=== PATIENT | male | born 1945 | race Caucasian/White ===

== ENCOUNTER → 2018-07-21 | Outpatient (CLI) | payer MEDICARE ==
[2018-07-21 11:03] LABS: LDL Cholesterol,Calculated 96.6 mg/dL (0.0-131.0); VLDL Calculation 18.4 mg/dL (5.00-40.00)
== END | disposition home or self-care (01) ==
LOC: LABWHC1 07:11
PROVIDERS: ATTEND Internal Medicine Cardiovascular Disease
DX: E78.2 Mixed hyperlipidemia (principal)
CPT/HCPCS: 36415; 80061; 84450; 84460

== ENCOUNTER 2018-10-02 08:14 | Emergency (ER) | payer MEDICARE ==
[2018-10-02 08:19] VITALS: TEMP 97.6
[2018-10-02] MEDS ORDERED: IPRATROPIUM-ALBUTEROL 3 ML NEB INHALATION STA (08:36)
[2018-10-02] MEDS ORDERED: predniSONE 50 MG TAB PO STA (08:36)
--- NOTE | 2018-10-02 08:45 | ED ---
General Adult HPI - General Chief complaint: Shortness of Breath Stated complaint: Diff breathing Time Seen by Provider: 10/02/18 08:14 Source: patient, RN notes reviewed Mode of arrival: ambulatory Limitations: no limitations - History of Present Illness Initial comments: This is a 73-year-old male who states he is here because he is coughing and coughing up quite a bit of sputum. Patient states she is a smoker and has been smoking since she was young. Patient states this started about a week ago started his head and nose and is now moved down into his chest. Patient states he is short of breath but he has no chest pain no palpitations. Patient denies any abdominal pain patient denies any nausea vomiting diarrhea. Patient states he is coughing so much is made it difficult to sleep lately. Patient denies any lightheadedness dizziness or near syncopal episode. - Related Data Home Medications Medication Instructions Recorded Confirmed Aspirin [[place] Aspirin EC] 81 mg PO DAILY 10/02/18 10/02/18 Carvedilol [Coreg] 25 mg PO DAILY 10/02/18 10/02/18 Lisinopril-Hctz 20-12.5 mg 1 tab PO DAILY 10/02/18 10/02/18 [Zestoretic 20-12.5] Multivitamins, Thera [Multivitamin 1 tab PO DAILY 10/02/18 10/02/18 (formulary)] Spironolactone [Aldactone] 25 mg PO DAILY 10/02/18 10/02/18 guaiFENesin-DM 600/30MG [Mucinex 1 tab PO BID 10/02/18 10/02/18 Dm] Previous Rx's Medication Instructions Recorded Albuterol Inhaler [Ventolin Hfa 1 - 2 puff INHALATION Q6HR PRN #2 10/02/18 Inhaler] puff Azithromycin [Zithromax Tri-Rob] 500 mg PO DAILY #3 tab 10/02/18 predniSONE 40 mg PO DAILY #8 tab 10/02/18 Allergies Allergy/AdvReac Type Severity Reaction Status Date / Time Penicillins Allergy Unknown Verified 10/02/18 08:55 Review of Systems ROS Statement: Those systems with pertinent positive or pertinent negative responses have been documented in the HPI. ROS Other: All systems not noted in ROS Statement are negative. Past Medical History Past Medical History: Coronary Artery Disease (CAD), Hyperlipidemia, Hypertension, Myocardial Infarction ([place]) History of Any Multi-Drug Resistant Organisms: None Reported Past Psychological History: No Psychological Hx Reported Smoking Status: Current every day smoker Past Alcohol Use History: None Reported Past Drug Use History: None Reported General Exam - General Exam Comments Initial Comments: GENERAL: Patient is well-developed and well-nourished. Patient is nontoxic and well- hydrated and is in mild distress. ENT: Neck is soft and supple. No significant lymphadenopathy is noted. Oropharynx is clear. Moist mucous membranes. Neck has full range of motion without eliciting any pain. EYES: The sclera were anicteric and conjunctiva were pink and moist. Extraocular movements were intact and pupils were equal round and reactive to light. Eyelids were unremarkable. PULMONARY: Extra wheezing diffusely CARDIOVASCULAR: There is a regular rate and rhythm without any murmurs gallops or rubs. ABDOMEN: Soft and nontender with normal bowel sounds. No palpable organomegaly was noted. There is no palpable pulsatile mass. SKIN: Skin is clear with no lesions or rashes and otherwise unremarkable. NEUROLOGIC: Patient is alert and oriented x3. Cranial nerves II through XII are grossly intact. Motor and sensory are also intact. Normal speech, volume and content. Symmetrical smile. MUSCULOSKELETAL: Normal extremities with adequate strength and full range of motion. No lower extremity swelling or edema. No calf tenderness. LYMPHATICS: No significant lymphadenopathy is noted PSYCHIATRIC: Normal psychiatric evaluation. Limitations: no limitations Course Vital Signs 10/02/18 10/02/18 10/02/18 08:16 08:56 09:06 Temperature 97.6 F Pulse Rate 83 84 88 Respiratory 20 Rate Blood Pressure 151/76 O2 Sat by Pulse 98 Oximetry Medical Decision Making - Medical Decision Making EKG shows normal sinus rhythm at 69 bpm AR interval is 182 QRS is 96 Q-T intervals 46 QTC is 435 per patient's EKG shows no ST segment elevation or depression or T wave abnormalities are noted. Chest x-ray shows calcifications of probable asbestosis. Patient received Rocephin emergency department. Patient received a breathing treatment and steroids in the emergency department as well. After the treatment I listened to the patient's lungs he was much more clear only some scattered wheezing was still hurt. Patient states he feels considerably better. Disposition Clinical Impression: Bronchitis with bronchospasm Disposition: HOME SELF-CARE Condition: Good Prescriptions: Albuterol Inhaler [Ventolin Hfa Inhaler] 1 - 2 puff INHALATION Q6HR PRN #2 puff PRN Reason: Difficulty breathing Azithromycin [Zithromax Tri-Rob] 500 mg PO DAILY #3 tab predniSONE 40 mg PO DAILY #8 tab Is patient prescribed a controlled substance at d/c from ED?: No Referrals: None,Stated [Primary Care Provider] - 1-2 days Time of Disposition: 09:24
--- NOTE | 2018-10-02 08:59 | XR ---
EXAMINATION TYPE: XR chest 2V DATE OF EXAM: 10/02/2018 HISTORY: Difficulty breathing . REFERENCE: NONE. FINDINGS: Lung volumes are prominent. There is calcified pleural plaque present. The heart is not enl arged. There is no definite pneumonia or edema. IMPRESSION: 1. COPD. 2. CALCIFIED PLEURAL PLAQUE REFLECTING PREVIOUS ASBESTOS EXPOSURE.
[2018-10-02] MEDS ORDERED: cefTRIAXone 1,000 MG VIAL (IM USE) IM STA (09:16)
[2018-10-02 10:03] VITALS: BP 138/72; PULSE 80; RESP 18
== END 2018-10-02 10:05 | disposition home or self-care (01) ==
LOC: EC 08:14
DX: J40 Bronchitis, not specified as acute or chronic (principal); J98.01 Acute bronchospasm; I25.10 Atherosclerotic heart disease of native coronary artery without angina pectoris; I10 Essential (primary) hypertension; I25.2 Old myocardial infarction; F17.200 Nicotine dependence, unspecified, uncomplicated; Z79.02 Long term (current) use of antithrombotics/antiplatelets; Z79.82 Long term (current) use of aspirin; Z79.899 Other long term (current) drug therapy; Z88.0 Allergy status to penicillin
CPT/HCPCS: 94640; 71046; 99285; 96372; J0696; J7512

== ENCOUNTER → 2019-08-23 | Outpatient (CLI) | payer MEDICARE ==
[2019-08-23 14:53] LABS: African American GFR (CKD) >90 (>60 ml/min/1.73 sqM); Blood Urea Nitrogen 11 mg/dL (9-20); Non-African American GFR(CKD) >90 (>60 ml/min/1.73 sqM)
--- NOTE | 2019-08-23 15:37 | CT ---
EXAMINATION TYPE: CT angio abdomen DATE OF EXAM: 08/23/2019 COMPARISON: HISTORY: ABNORMAL ULTRASOUND CT DLP: 365 mGycm CONTRAST: CTA thoracic and abdominal aorta with 3-D reconstruction is performed and with IV Contrast, patient i njected with 100 mL of Isovue 370. Contrast CTA of the abdominal aorta was performed from the lung bases through the base of the pelvis. 3-D reconstruction imaging obtained at a separate workstation. CONTRAST CT ABDOMEN AND PELVIS Lung bases: Calcified pleural plaques are noted. ABDOMINAL AORTA: The abdominal aorta is ectatic however nonaneurysmal at this time. Maximal AP dimens ion of the abdominal aorta is 2.9 cm. No dissection. Iliac vessels are symmetric and patent. Branc h vessels are patent. LIVER/GB- No significant abnormality is seen. PANCREAS- No significant abnormality is seen. SPLEEN- No significant abnormality is seen. ADRENALS- No significant abnormality is seen. KIDNEYS/BLADDER-large left renal cyst with 2 adjacent cysts noted measuring 6.2 cm and 6.8 cm in grea test dimension. Smaller right-sided renal cortical cysts noted. BOWEL- No Significant abnormality GENITAL ORGANS: No gross abnormality seen. LYMPH NODES- No greater than 1cm abdominal or pelvic lymph nodes areappreciated. OSSEOUS STRUCTURES- No significant abnormality is seen. OTHER- No significant abnormality is seen. IMPRESSION- 1. Atheromatous and ectatic change of the abdominal aorta without evidence for aneurysm. 2. 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 3. Large renal cysts particularly on the left.
== END | disposition home or self-care (01) ==
LOC: RADCTMAIN 11:44
PROVIDERS: ATTEND Internal Medicine Cardiovascular Disease
DX: I70.0 Atherosclerosis of aorta (principal); I77.811 Abdominal aortic ectasia; N28.1 Cyst of kidney, acquired; Z88.0 Allergy status to penicillin; Z88.8 Allergy status to other drugs, medicaments and biological substances
CPT/HCPCS: 82565; 84520; 74175; Q9967

== ENCOUNTER → 2019-09-05 | Outpatient (CLI) | payer MEDICARE ==
--- NOTE | 2019-09-05 16:31 | CT ---
EXAMINATION TYPE: CT chest wo con DATE OF EXAM: 09/05/2019 COMPARISON: Chest x-ray October 02, 2018 HISTORY: cough, asbestos exposure, cardiomyopathy, history of tobacco use, coronary artery disease PADILLA RDER. CT DLP: 472.7 mGycm. Automated Exposure Control for Dose Reduction was Utilized. TECHNIQUE: CT scan of the thorax is performed without IV contrast. FINDINGS: LUNGS: Calcified bilateral pleural plaques consistent with history of prior asbestos exposure fairly diffusely are redemonstrated. Involvement just above both diaphragms is noted. Lungs show mild scarri ng along the right major fissure axial image 30 and near region of right minor fissure axial image 36 and also along the left long fissure axial image 38 laterally. No suspicious focal consolidation. No pleural effusion or pneumothorax. No suspicious noncalcified pulmonary nodules or masses. Mild centr al peribronchial wall thickening is present. MEDIASTINUM: Lack of IV contrast is noted to limit evaluation for mediastinal and especially hilar ad enopathy. There are no definitive greater than 1 cm hilar or mediastinal lymph nodes. No significan t pericardial effusion is seen. There is severe diffuse three-vessel coronary artery calcification wh ich is noted marker for underlying coronary artery disease. Heart size upper limits of normal. OTHER: Small degree of bilateral subareolar flame-shaped gynecomastia. There are 2 fairly large exoph ytic adjacent thin-walled cysts bilaterally upper to mid pole level left kidney partially imaged. Mod erate calcified plaque visualized portion of abdominal aorta. IMPRESSION: Multiple calcified pleural plaques consistent with history of prior asbestos exposure. Mi ld scarring along fissures. No suspicious acute pulmonary process.
== END | disposition home or self-care (01) ==
LOC: RADCTMAIN 15:45
PROVIDERS: ATTEND Internal Medicine Pulmonary Disease
DX: J98.4 Other disorders of lung (principal); I25.10 Atherosclerotic heart disease of native coronary artery without angina pectoris; I42.9 Cardiomyopathy, unspecified; Z72.0 Tobacco use; J92.0 Pleural plaque with presence of asbestos
CPT/HCPCS: 71250

== ENCOUNTER 2019-12-05 15:54 | Emergency (ER) | payer MEDICARE ==
[2019-12-05 15:59] VITALS: BP 172/80; PULSE 66; RESP 18; TEMP 98.3
--- NOTE | 2019-12-05 16:14 | ED ---
Lower Extremity Injury HPI - General Chief Complaint: Extremity Injury, Lower Stated Complaint: Leg pain Time Seen by Provider: 12/05/19 16:00 Source: patient Mode of arrival: ambulatory Limitations: no limitations - History of Present Illness Initial Comments: Patient is a 74-year-old male presenting to emergency Department with complaints of pain in his left calf that happened approximately 20 minutes prior to arrival. Patient states he normally walks outside but attempted to jog today when he felt a pull in his left calf muscle. Patient states he is having a hard time walking so he came in to the ER. He states he's been having problems with this calf muscle for a few years now. He's never had surgery or any other further injuries to this left lower leg. She denies any falls or trauma. He denies history of blood clots. He has no other complaints at this time. Upon arrival to the ER, vital signs are stable. - Related Data Home Medications Medication Instructions Recorded Confirmed Aspirin [[place] Aspirin EC] 81 mg PO DAILY 10/02/18 10/02/18 Carvedilol [Coreg] 25 mg PO DAILY 10/02/18 10/02/18 Lisinopril-Hctz 20-12.5 mg 1 tab PO DAILY 10/02/18 10/02/18 [Zestoretic 20-12.5] Multivitamins, Thera [Multivitamin 1 tab PO DAILY 10/02/18 10/02/18 (formulary)] Spironolactone [Aldactone] 25 mg PO DAILY 10/02/18 10/02/18 guaiFENesin-DM 600/30MG [Mucinex 1 tab PO BID 10/02/18 10/02/18 Dm] Previous Rx's Medication Instructions Recorded Albuterol Inhaler [Ventolin Hfa 1 - 2 puff INHALATION Q6HR PRN #2 10/02/18 Inhaler] puff Azithromycin [Zithromax Tri-Rob] 500 mg PO DAILY #3 tab 10/02/18 predniSONE [Deltasone] 40 mg PO DAILY #8 tab 10/02/18 Allergies Allergy/AdvReac Type Severity Reaction Status Date / Time Penicillins Allergy Unknown Verified 12/05/19 15:59 Review of Systems ROS Statement: Those systems with pertinent positive or pertinent negative responses have been documented in the HPI. ROS Other: All systems not noted in ROS Statement are negative. Past Medical History Past Medical History: Coronary Artery Disease (CAD), Hyperlipidemia, Hypertension, Myocardial Infarction ([place]) History of Any Multi-Drug Resistant Organisms: None Reported Past Psychological History: No Psychological Hx Reported Smoking Status: Former smoker Past Alcohol Use History: None Reported Past Drug Use History: None Reported General Exam - General Exam Comments Initial Comments: GENERAL: Well-appearing, well-nourished and in no acute distress. HEAD: Atraumatic, normocephalic. EYES: Pupils equal round and reactive to light, extraocular movements intact, sclera anicteric, conjunctiva are normal. ENT: Moist mucous membranes. NECK: Normal range of motion, supple without lymphadenopathy or JVD. LUNGS: Breath sounds clear to auscultation bilaterally and equal. No wheezes rales or rhonchi. HEART: Regular rate and rhythm without murmurs, rubs or gallops. ABDOMEN: Soft, nontender, normoactive bowel sounds. No guarding, no rebound. No masses appreciated. EXTREMITIES: Patient has full range of motion of his left lower leg. Pain with palpation over the left gastroc muscle. There is no erythema or swelling to the area. No pitting or edema. No clubbing or cyanosis. NEUROLOGICAL: Normal speech, normal gait. PSYCH: Normal mood, normal affect. SKIN: Warm, Dry, normal turgor, no rashes or lesions noted. Limitations: no limitations Course Vital Signs 12/05/19 15:55 Temperature 98.3 F Pulse Rate 66 Respiratory 18 Rate Blood Pressure 172/80 O2 Sat by Pulse 100 Oximetry Medical Decision Making - Medical Decision Making Patient is a 74-year-old male presenting with a muscle strain of his left calf happened just prior to arrival. There is no signs of infection. I discussed with patient to use ice to the area as well as heat, Tylenol or Motrin for pain relief as well as a compression wrap for symptoms. Patient will follow up with PCP if symptoms persist. Patient is stable for discharge. Disposition Clinical Impression: Gastrocnemius strain, left Disposition: HOME SELF-CARE Condition: Stable Instructions (If sedation given, give patient instructions): Muscle Strain (ED) Additional Instructions: Please return to the Emergency Department if symptoms worsen or any other concerns. Use ice to the area for the first 24-48 hours. After that may apply heat to the area. Use compression wrap for comfort. May try Tylenol for pain. Follow up with PCP if symptoms persist. Is patient prescribed a controlled substance at d/c from ED?: No Referrals: None,Stated [Primary Care Provider] - 1-2 days
== END 2019-12-05 16:21 | disposition home or self-care (01) ==
LOC: EC 15:54
DX: S86.112A Strain of other muscle(s) and tendon(s) of posterior muscle group at lower leg level, left leg, initial encounter (principal); I25.10 Atherosclerotic heart disease of native coronary artery without angina pectoris; I10 Essential (primary) hypertension; I25.2 Old myocardial infarction; Z87.891 Personal history of nicotine dependence; Z88.0 Allergy status to penicillin; Z79.82 Long term (current) use of aspirin; Z79.899 Other long term (current) drug therapy; X50.9XXA Other and unspecified overexertion or strenuous movements or postures, initial encounter; Y93.89 Activity, other specified
CPT/HCPCS: 99283

== ENCOUNTER → 2020-07-17 | Outpatient (CLI) | payer MEDICARE ==
[2020-07-17 15:34] LABS: Chol/HDL Ratio 4.31; LDL Cholesterol,Calculated 102.4 mg/dL (0.0-131.0); VLDL Calculation 26.6 mg/dL (5.00-40.00)
== END | disposition home or self-care (01) ==
LOC: LABWHC1 08:19
PROVIDERS: ATTEND Internal Medicine Cardiovascular Disease
DX: E78.2 Mixed hyperlipidemia (principal)
CPT/HCPCS: 36415; 80061; 84450; 84460

== ENCOUNTER → 2021-07-17 | Outpatient (CLI) | payer MEDICARE ==
[2021-07-17 12:14] LABS: Chol/HDL Ratio 3.81 Ratio; HDL Cholesterol 32.3 mg/dL (40.00-60.00); LDL Cholesterol,Calculated 67.3 mg/dL (0.0-131.0); VLDL Calculation 23.4 mg/dL (5.00-40.00)
== END | disposition home or self-care (01) ==
LOC: LABWHC1 07:15
PROVIDERS: ATTEND Nurse Practitioner Family
DX: E78.2 Mixed hyperlipidemia (principal)
CPT/HCPCS: 36415; 80061; 84450; 84460

== ENCOUNTER → 2022-07-29 | Outpatient (CLI) | payer MEDICARE ==
[2022-07-29 15:13] LABS: HCT 47.1 % (39.6-50.0); HGB 15.2 g/dL (13.0-17.0); MCH 28.5 pg (27.0-32.0); MCHC 32.3 g/dL (32.0-37.0); MCV 88.2 fL (80.0-97.0); Mean Platelet Volume 10.8 fL (9.5-12.2); NRBC Per 100 WBC 0 /100 WBCS (0.0-0.0); Platelet Count 333 X 10*3/uL (140-440); RBC 5.34 X 10*6/uL (4.40-5.60); RDW 13.4 % (11.5-14.5); WBC 10.54 X 10*3/uL (4.50-10.00)
[2022-07-29 15:30] LABS: ALT 10 U/L (10-49); AST 18 U/L (14-35); African American GFR (CKD) 98.7 (60.0-200.0); BUN/Creat Ratio 11.89 Ratio (12.00-20.00); Blood Urea Nitrogen 10.3 mg/dL (9.0-27.0); Calcium 9.5 mg/dL (8.7-10.3); Carbon Dioxide 30.9 mmol/L (20.0-27.5); Chloride 95 mmol/L (96-109); Chol/HDL Ratio 3.53 Ratio; Glucose 117 mg/dL (70-110); LDL Cholesterol,Calculated 73.2 mg/dL (0.0-131.0); Non-African American GFR(CKD) 85.2 (60.0-200.0); Potassium 5.3 mmol/L (3.5-5.5); Sodium 134 mmol/L (135-145)
== END | disposition home or self-care (01) ==
LOC: LABWHC1 08:30
PROVIDERS: ATTEND Internal Medicine Cardiovascular Disease
DX: I25.10 Atherosclerotic heart disease of native coronary artery without angina pectoris (principal); E78.2 Mixed hyperlipidemia
CPT/HCPCS: 36415; 80048; 80061; 84450; 84460; 85027

== ENCOUNTER → 2023-07-15 | Outpatient (CLI) | payer MEDICARE ==
[2023-07-15 16:38] LABS: ALT 13 U/L (10-49); AST 17 U/L (14-35); Chol/HDL Ratio 2.97 Ratio; LDL Cholesterol,Calculated 64.6 mg/dL (0.0-131.0); VLDL Calculation 17.58 mg/dL (5.00-40.00)
== END | disposition home or self-care (01) ==
LOC: LABWHC1 07:58
PROVIDERS: ATTEND Internal Medicine Cardiovascular Disease
DX: E78.2 Mixed hyperlipidemia (principal)
CPT/HCPCS: 36415; 80061; 84450; 84460

== ENCOUNTER → 2024-07-24 | Outpatient (CLI) | payer MEDICARE ==
[2024-07-24 11:37] LABS: ALT 15 U/L (10-49); AST 19 U/L (14-35); LDL Cholesterol,Calculated 78.2 mg/dL (0.0-131.0); VLDL Calculation 19.88 mg/dL (5.00-40.00)
== END | disposition home or self-care (01) ==
LOC: LABWHC1 07:41
PROVIDERS: ATTEND Internal Medicine Cardiovascular Disease
DX: E78.2 Mixed hyperlipidemia (principal)
CPT/HCPCS: 36415; 80061; 84450; 84460

== ENCOUNTER 2024-09-30 22:47 | Emergency (ER) | payer MEDICARE ==
[2024-09-30] MEDS: MIDAZOLAM 1 MG/ML 5 ML VIAL IVP STA (22:52)
[2024-09-30 22:57] LABS: Glucose,Whole Blood 229 mg/dL (70-110)
--- NOTE | 2024-09-30 22:58 | ED ---
Altered Mental Status HPI - General Chief Complaint: Altered Mental Status Stated Complaint: Unresponsive Time Seen by Provider: 09/30/24 22:57 Source: patient, EMS, RN notes reviewed, old records reviewed Mode of arrival: EMS Limitations: no limitations - History of Present Illness Initial Comments: This is a 79-year-old male of unknown medical history coming in for being found down. Patient was found during a well check to be unresponsive vomiting with a low oxygen level MD Complaint: altered mental status, decreased responsiveness, weakness -: unknown Severity: severe Consistency of Symptoms: constant Associated Symptoms: nausea/vomiting, weakness, incontinence Treatments Prior to Arrival: IV fluid, oxygen - Related Data Home Medications Medication Instructions Recorded Confirmed Aspirin [[place] Aspirin EC] 81 mg PO DAILY 10/02/18 10/02/18 Lisinopril-Hctz 20-12.5 mg 1 tab PO DAILY 10/02/18 10/02/18 [Zestoretic 20-12.5] Multivitamins, Thera [Multivitamin 1 tab PO DAILY 10/02/18 10/02/18 (formulary)] Spironolactone [Aldactone] 25 mg PO DAILY 10/02/18 10/02/18 carvediloL [Coreg] 25 mg PO DAILY 10/02/18 10/02/18 guaiFENesin-DM 600/30MG [Mucinex 1 tab PO BID 10/02/18 10/02/18 Dm] Previous Rx's Medication Instructions Recorded Albuterol Inhaler [Ventolin Hfa 1 - 2 puff INHALATION Q6HR PRN #2 10/02/18 Inhaler] puff Azithromycin [Zithromax Tri-Rob] 500 mg PO DAILY #3 tab 10/02/18 predniSONE [Deltasone] 40 mg PO DAILY #8 tab 10/02/18 Allergies Allergy/AdvReac Type Severity Reaction Status Date / Time Penicillins Allergy Unknown Verified 12/05/19 15:59 Review of Systems ROS Statement: Those systems with pertinent positive or pertinent negative responses have been documented in the HPI. ROS Other: All systems not noted in ROS Statement are negative. Past Medical History Past Medical History: Coronary Artery Disease (CAD), Hyperlipidemia, Hypertension, Myocardial Infarction (NM) History of Any Multi-Drug Resistant Organisms: None Reported Past Psychological History: No Psychological Hx Reported Past Alcohol Use History: None Reported Past Drug Use History: None Reported General Exam Limitations: altered mental status, physical limitation General appearance: anxious, obtunded, in distress Head exam: Present: atraumatic, normocephalic, normal inspection Eye exam: Present: normal appearance, PERRL, EOMI. Absent: scleral icterus, conjunctival injection, periorbital swelling ENT exam: Present: normal exam, mucous membranes moist Neck exam: Present: normal inspection. Absent: tenderness, meningismus, lymphadenopathy Respiratory exam: Present: normal lung sounds bilaterally. Absent: respiratory distress, wheezes, rales, rhonchi, stridor Cardiovascular Exam: Present: regular rate, normal rhythm, normal heart sounds. Absent: systolic murmur, diastolic murmur, rubs, gallop, clicks GI/Abdominal exam: Present: soft, normal bowel sounds. Absent: distended, tenderness, guarding, rebound, rigid Extremities exam: Present: normal inspection, full ROM, normal capillary refill. Absent: tenderness, pedal edema, joint swelling, calf tenderness Back exam: Present: normal inspection Neurological exam: Present: alert, oriented X3, CN II-XII intact Psychiatric exam: Present: normal affect, normal mood Skin exam: Present: warm, dry, intact, normal color. Absent: rash Course Vital Signs 09/30/24 09/30/24 09/30/24 22:49 23:06 23:08 Pulse Rate 96 Respiratory 4 L 4 L Rate Blood Pressure 177/95 O2 Sat by Pulse 85 L Oximetry Fraction of 100 Inspired Oxygen (FIO2) 09/30/24 09/30/24 09/30/24 23:09 23:20 23:35 Pulse Rate 92 80 Respiratory 22 22 Rate Blood Pressure 120/64 137/43 O2 Sat by Pulse 100 97 Oximetry Fraction of 100 Inspired Oxygen (FIO2) 09/30/24 09/30/24 10/01/24 23:40 23:50 00:00 Pulse Rate 77 105 H Respiratory 22 22 Rate Blood Pressure 113/61 123/57 O2 Sat by Pulse 99 95 Oximetry Fraction of 60 Inspired Oxygen (FIO2) 10/01/24 10/01/24 10/01/24 00:27 01:11 01:50 Pulse Rate 68 67 64 Respiratory 22 18 22 Rate Blood Pressure 77/51 106/54 96/61 O2 Sat by Pulse 97 98 100 Oximetry Fraction of Inspired Oxygen (FIO2) - Reevaluation(s) Reevaluation #1: 01/11/25 23:54 Medical records reviewed Reevaluation #2: 10/01/24 01:03 Appear to be showing spontaneous neurologically movement biting on the tube Reevaluation #3: 10/01/24 01:03 No family or patient at bedside to inform of results, family was spoke with on the phone he states patient is full code Reevaluation #4: Was pt. sent in by a medical professional or institution (, [facility], [facility], urgent care, hospital, or usp...) When possible be specific @ -no Did you speak to anyone other than the patient for history (EMS, parent, family, police, friend...)? What history was obtained from this source @ -no Did you review nursing and triage notes (agree or disagree)? Why? @ -agree Are old charts reviewed (outside hosp., previous admission, EMS record, old EKG, old radiological studies, urgent care reports/EKG's, usp records)? Report findings @ -yes Differential Diagnosis (chest pain, altered mental status, abdominal pain women, abdominal pain men, vaginal bleeding, weakness, fever, dyspnea, syncope, headache, dizziness, GI bleed, back pain, seizure, CVA, palpatations, mental health, musculoskeletal)? @ -prior EKG interpreted by me (3pts min.). @ -yes X-rays interpreted by me (1pt min.). @ -yes negative for acute disease CT interpreted by me (1pt min.). @ -Yes positive for intracranial hemorrhage U/S interpreted by me (1pt. min.). @ -no What testing was considered but not performed or refused? (CT, X-rays, U/S, labs)? Why? @ -none What meds were considered but not given or refused? Why? @ -none Did you discuss the management of the patient with other professionals (professionals i.e. [facility] Mcneal, [employer] [employer], lab, RT, psych nurse, social media strategist, tube roller, teacher, loans officer, rn case manager)? Give summary @ -no Was smoking cessation discussed for >3mins.? @ -no Was critical care preformed (if so, how long)? @ -yes31 Were there social determinants of health that impacted care today? How? (Homelessness, low income, unemployed, alcoholism, drug addiction, transportation, low edu. Level, literacy, decrease access to med. care, fdc, rehab)? @ -none Was there de-escalation of care discussed even if they declined (Discuss DNR or withdrawal of care, Hospice)? DNR status @ -no What co-morbidities impacted this encounter? (DM, HTN, Smoking, COPD, CAD, Cancer, CVA, ARF, Chemo, Hep., AIDS, mental health diagnosis, sleep apnea, morbid obesity)? @ -none Was patient admitted / discharged? Hospital course, mention meds given and route, prescriptions, significant lab abnormalities, going to OR and other pertinent info. @ - 79 male unresponsive altered mental status positive intracranial hemorrhage will transfer for inpatient treatment, patient does appear to have conversion of prior CVA Transferred for inpatient treatment Undiagnosed new problem with uncertain prognosis? @ -no Drug Therapy requiring intensive monitoring for toxicity (Heparin, Nitro, Insulin, Cardizem)? @ -no Were any procedures done? @ -no Diagnosis/symptom? @ -Intracranial hemorrhage Acute, or Chronic, or Acute on Chronic? @ -Acute Uncomplicated (without systemic symptoms) or Complicated (systemic symptoms)? @ -Complicated Side effects of treatment? @ -no Exacerbation, Progression, or Severe Exacerbation? @ -exacerbation Poses a threat to life or bodily function? How? (Chest pain, USA, NM, pneumonia, PE, COPD, DKA, ARF, appy, cholecystitis, CVA, Diverticulitis, Homicidal, Suicidal, threat to staff... and all critical care pts) @ -yes significant acute intracranial hemorrhage Reevaluation #5: Differential Altered Mental Status: Hypoglycemia, DKA, hypercapnia, ETOH, overdose, CO poisoning, trauma, myxedema coma, HTN encephalopathy, infection, encephalitis, psychosis, intercranial hemorrhage, hepatic encephalopathy, meningitis, CVA, this is not meant to be an all-inclusive list - Consultations Consultation #1: [facility] [place] accept patient for transfer Procedures - Intubation Sedative: Ketamine Laryngoscope: Joni Size: 4 Assist Device Used: Bougie ET Tube Size: 7.5 ET Tube Uncuffed: Yes Tube Secured Location: teeth Tube Placement Confirmation: visualized tube passing through cords, equal breath sounds bilaterally, no breath sounds over epigastrium, confirmation by capnometry Patient Tolerated Procedure: well Intubation Complications: none Medical Decision Making - Medical Decision Making 79 male unresponsive altered mental status positive intracranial hemorrhage will transfer for inpatient treatment, patient does appear to have conversion of prior CVA - Lab Data Result diagrams: 09/30/24 22:51 09/30/24 22:51 Lab Results 09/30/24 09/30/24 09/30/24 Range/Units 22:51 22:51 22:51 WBC 25.2 H (3.8-10.6) k/uL RBC 4.90 (4.30-5.90) m/uL Hgb 14.6 (13.0-17.5) gm/dL Hct 44.3 (39.0-53.0) % MCV 90.6 (80.0-100.0) fL MCH 29.8 (25.0-35.0) pg MCHC 32.9 (31.0-37.0) g/dL RDW 13.0 (11.5-15.5) % Plt Count 287 (150-450) k/uL MPV 7.8 Neutrophils % 90 % Lymphocytes % 3 % Monocytes % 5 % Eosinophils % 1 % Basophils % 0 % Neutrophils # 22.8 H (1.3-7.7) k/uL Lymphocytes # 0.8 L (1.0-4.8) k/uL Monocytes # 1.3 H (0-1.0) k/uL Eosinophils # 0.1 (0-0.7) k/uL Basophils # 0.0 (0-0.2) k/uL PT 10.8 (10.0-12.5) sec INR 1.0 (<1.2) APTT 23.1 (22.0-30.0) sec Sample Site ABG pH (7.35-7.45) ABG pCO2 (35-45) mmHg ABG pO2 (83-108) mmHg ABG HCO3 (21-25) mmol/L ABG Total CO2 (19-24) mmol/L ABG O2 Saturation (94-97) % ABG Base Excess mmol/L John Test Hemoglobin (13.0-17.5) gm/dL FiO2 % Sodium 126 L (137-145) mmol/L Potassium 4.3 (3.5-5.1) mmol/L Chloride 88 L (98-107) mmol/L Carbon Dioxide 29 (22-30) mmol/L Anion Gap 9 mmol/L BUN 14 (9-20) mg/dL Creatinine 0.67 (0.66-1.25) mg/dL Est GFR (CKD-EPI)AfAm >90 (>60 ml/min/1.73 sqM) Est GFR (CKD-EPI)NonAf >90 (>60 ml/min/1.73 sqM) Glucose 222 H (74-99) mg/dL POC Glucose (mg/dL) (70-110) mg/dL POC Glu [employer] Checker ID Calcium 9.0 (8.4-10.2) mg/dL Total Bilirubin 0.7 (0.2-1.3) mg/dL AST 50 (17-59) U/L ALT 20 (4-49) U/L Alkaline Phosphatase 113 (38-126) U/L Ammonia (<30) umol/L Creatine Kinase 573 H (55-170) U/L Troponin I (0.000-0.034) ng/mL Total Protein 6.5 (6.3-8.2) g/dL Albumin 4.0 (3.5-5.0) g/dL Urine Color Urine Appearance (Clear) Urine pH (5.0-8.0) Ur Specific [place] (1.001-1.035) Urine Protein (Negative) Urine Glucose (UA) (Negative) Urine Ketones (Negative) Urine Blood (Negative) Urine Nitrite (Negative) Urine Bilirubin (Negative) Urine Urobilinogen (<2.0) mg/dL Ur Leukocyte Esterase (Negative) Urine RBC (0-5) /hpf Urine WBC (0-5) /hpf Amorphous Sediment (None) /hpf Urine Bacteria (None) /hpf Hyaline Casts (0-2) /lpf Urine Mucus (None) /hpf Salicylates <1.0 mg/dL Urine Opiates Screen (NotDetected) Ur Oxycodone Screen (NotDetected) Urine Methadone Screen (NotDetected) Acetaminophen <10.0 ug/mL Ur Barbiturates Screen (NotDetected) U Tricyclic Antidepress (NotDetected) Ur Phencyclidine Scrn (NotDetected) Ur Amphetamines Screen (NotDetected) U Methamphetamines Scrn (NotDetected) U Benzodiazepines Scrn (NotDetected) Urine Cocaine Screen (NotDetected) U Marijuana (THC) Screen (NotDetected) Serum Alcohol <10 mg/dL Acetone, Qual Negative (Negative) 09/30/24 09/30/24 09/30/24 Range/Units 22:51 22:51 22:55 WBC (3.8-10.6) k/uL RBC (4.30-5.90) m/uL Hgb (13.0-17.5) gm/dL Hct (39.0-53.0) % MCV (80.0-100.0) fL MCH (25.0-35.0) pg MCHC (31.0-37.0) g/dL RDW (11.5-15.5) % Plt Count (150-450) k/uL MPV Neutrophils % % Lymphocytes % % Monocytes % % Eosinophils % % Basophils % % Neutrophils # (1.3-7.7) k/uL Lymphocytes # (1.0-4.8) k/uL Monocytes # (0-1.0) k/uL Eosinophils # (0-0.7) k/uL Basophils # (0-0.2) k/uL PT (10.0-12.5) sec INR (<1.2) APTT (22.0-30.0) sec Sample Site ABG pH (7.35-7.45) ABG pCO2 (35-45) mmHg ABG pO2 (83-108) mmHg ABG HCO3 (21-25) mmol/L ABG Total CO2 (19-24) mmol/L ABG O2 Saturation (94-97) % ABG Base Excess mmol/L John Test Hemoglobin (13.0-17.5) gm/dL FiO2 % Sodium (137-145) mmol/L Potassium (3.5-5.1) mmol/L Chloride (98-107) mmol/L Carbon Dioxide (22-30) mmol/L Anion Gap mmol/L BUN (9-20) mg/dL Creatinine (0.66-1.25) mg/dL Est GFR (CKD-EPI)AfAm (>60 ml/min/1.73 sqM) Est GFR (CKD-EPI)NonAf (>60 ml/min/1.73 sqM) Glucose (74-99) mg/dL POC Glucose (mg/dL) 229 H (70-110) mg/dL POC Glu [employer] Checker ID [facility] Calcium (8.4-10.2) mg/dL Total Bilirubin (0.2-1.3) mg/dL AST (17-59) U/L ALT (4-49) U/L Alkaline Phosphatase (38-126) U/L Ammonia 15 (<30) umol/L Creatine Kinase (55-170) U/L Troponin I 0.307 H* (0.000-0.034) ng/mL Total Protein (6.3-8.2) g/dL Albumin (3.5-5.0) g/dL Urine Color Urine Appearance (Clear) Urine pH (5.0-8.0) Ur Specific [place] (1.001-1.035) Urine Protein (Negative) Urine Glucose (UA) (Negative) Urine Ketones (Negative) Urine Blood (Negative) Urine Nitrite (Negative) Urine Bilirubin (Negative) Urine Urobilinogen (<2.0) mg/dL Ur Leukocyte Esterase (Negative) Urine RBC (0-5) /hpf Urine WBC (0-5) /hpf Amorphous Sediment (None) /hpf Urine Bacteria (None) /hpf Hyaline Casts (0-2) /lpf Urine Mucus (None) /hpf Salicylates mg/dL Urine Opiates Screen (NotDetected) Ur Oxycodone Screen (NotDetected) Urine Methadone Screen (NotDetected) Acetaminophen ug/mL Ur Barbiturates Screen (NotDetected) U Tricyclic Antidepress (NotDetected) Ur Phencyclidine Scrn (NotDetected) Ur Amphetamines Screen (NotDetected) U Methamphetamines Scrn (NotDetected) U Benzodiazepines Scrn (NotDetected) Urine Cocaine Screen (NotDetected) U Marijuana (THC) Screen (NotDetected) Serum Alcohol mg/dL Acetone, Qual (Negative) 09/30/24 09/30/24 Range/Units 23:27 23:27 WBC (3.8-10.6) k/uL RBC (4.30-5.90) m/uL Hgb (13.0-17.5) gm/dL Hct (39.0-53.0) % MCV (80.0-100.0) fL MCH (25.0-35.0) pg MCHC (31.0-37.0) g/dL RDW (11.5-15.5) % Plt Count (150-450) k/uL MPV Neutrophils % % Lymphocytes % % Monocytes % % Eosinophils % % Basophils % % Neutrophils # (1.3-7.7) k/uL Lymphocytes # (1.0-4.8) k/uL Monocytes # (0-1.0) k/uL Eosinophils # (0-0.7) k/uL Basophils # (0-0.2) k/uL PT (10.0-12.5) sec INR (<1.2) APTT (22.0-30.0) sec Sample Site Left Radial ABG pH 7.30 L (7.35-7.45) ABG pCO2 58 H (35-45) mmHg ABG pO2 149 H (83-108) mmHg ABG HCO3 28 H (21-25) mmol/L ABG Total CO2 30 H (19-24) mmol/L ABG O2 Saturation 99.2 H (94-97) % ABG Base Excess 0.7 mmol/L John Test Yes Hemoglobin 13.5 (13.0-17.5) gm/dL FiO2 100 % Sodium (137-145) mmol/L Potassium (3.5-5.1) mmol/L Chloride (98-107) mmol/L Carbon Dioxide (22-30) mmol/L Anion Gap mmol/L BUN (9-20) mg/dL Creatinine (0.66-1.25) mg/dL Est GFR (CKD-EPI)AfAm (>60 ml/min/1.73 sqM) Est GFR (CKD-EPI)NonAf (>60 ml/min/1.73 sqM) Glucose (74-99) mg/dL POC Glucose (mg/dL) (70-110) mg/dL POC Glu [employer] Checker ID Calcium (8.4-10.2) mg/dL Total Bilirubin (0.2-1.3) mg/dL AST (17-59) U/L ALT (4-49) U/L Alkaline Phosphatase (38-126) U/L Ammonia (<30) umol/L Creatine Kinase (55-170) U/L Troponin I (0.000-0.034) ng/mL Total Protein (6.3-8.2) g/dL Albumin (3.5-5.0) g/dL Urine Color Yellow Urine Appearance Clear (Clear) Urine pH 6.0 (5.0-8.0) Ur Specific [place] 1.020 (1.001-1.035) Urine Protein 3+ H (Negative) Urine Glucose (UA) 4+ H (Negative) Urine Ketones 1+ H (Negative) Urine Blood Large H (Negative) Urine Nitrite Negative (Negative) Urine Bilirubin Negative (Negative) Urine Urobilinogen <2.0 (<2.0) mg/dL Ur Leukocyte Esterase Negative (Negative) Urine RBC 7 H (0-5) /hpf Urine WBC 5 (0-5) /hpf Amorphous Sediment Rare H (None) /hpf Urine Bacteria Rare H (None) /hpf Hyaline Casts 23 H (0-2) /lpf Urine Mucus Few H (None) /hpf Salicylates mg/dL Urine Opiates Screen Not Detected (NotDetected) Ur Oxycodone Screen Not Detected (NotDetected) Urine Methadone Screen Not Detected (NotDetected) Acetaminophen ug/mL Ur Barbiturates Screen Not Detected (NotDetected) U Tricyclic Antidepress Not Detected (NotDetected) Ur Phencyclidine Scrn Not Detected (NotDetected) Ur Amphetamines Screen Not Detected (NotDetected) U Methamphetamines Scrn Not Detected (NotDetected) U Benzodiazepines Scrn Not Detected (NotDetected) Urine Cocaine Screen Not Detected (NotDetected) U Marijuana (THC) Screen Not Detected (NotDetected) Serum Alcohol mg/dL Acetone, Qual (Negative) - EKG Data -: EKG Interpreted by Me (EKG is sinus 92 [place] 209 QRS 146 QTc 440) - Radiology Data Radiology results: report reviewed (CT Brain C-spine positive for large intracranial hemorrhage with chest and pelvis x-ray negative for acute disease), image reviewed Critical Care Time Critical Care Time: Yes Total Critical Care Time: 65 Disposition Clinical Impression: Altered mental status, Acute respiratory failure, Intracranial hemorrhage Disposition: OTHER INSTITUTION NOT DEFINED Condition: Critical Is patient prescribed a controlled substance at d/c from ED?: No Referrals: None,Stated [Primary Care Provider] - 1-2 days - Out of Hospital Transfer - Req. Specs Out of Hospital Transfer - Requested Specifics: Other Emergency Center ([facility]
[2024-09-30] MEDS: NALOXONE 0.4 MG/ML 1 ML VIAL IVP STA (23:06)
[2024-09-30] MEDS: SODIUM CHLORIDE 0.9% 1,000 ML IV ONE (23:07)
[2024-09-30] MEDS: SODIUM CHLORIDE 0.9% 1,000 ML IV STA (23:08)
[2024-09-30 23:24] LABS: Basophils % (A) 0 %; Eosinophils # (A) 0.1 k/uL (0-0.7); Eosinophils % (A) 1 %; HCT 44.3 % (39.0-53.0); HGB 14.6 gm/dL (13.0-17.5); Lymphocytes # (A) 0.8 k/uL (1.0-4.8); Lymphocytes % (A) 3 %; MCH 29.8 pg (25.0-35.0); MCHC 32.9 g/dL (31.0-37.0); MCV 90.6 fL (80.0-100.0); Mean Platelet Volume 7.8; Monocytes # (A) 1.3 k/uL (0-1.0); Monocytes % (A) 5 %; Neutrophils # (A) 22.8 k/uL (1.3-7.7); Neutrophils % (A) 90 %; Platelet Count 287 k/uL (150-450); WBC 25.2 k/uL (3.8-10.6)
[2024-09-30 23:30] LABS: ABG Base Excess 0.7 mmol/L; ABG HCO3 28 mmol/L (21-25); ABG Oxygen Saturation 99.2 % (94-97); ABG PCO2 58 mmHg (35-45); ABG PO2 149 mmHg (83-108); ABG TCO2 30 mmol/L (19-24); Allen Test Performed? Yes
[2024-09-30 23:33] LABS: Partial Thromboplastin Time 23.1 sec (22.0-30.0); Prothrombin Time 10.8 sec (10.0-12.5)
[2024-09-30 23:41] LABS: ALT 20 U/L (4-49); AST 50 U/L (17-59); Acetaminophen <10.0 ug/mL; African American GFR (CKD) >90 (>60 ml/min/1.73 sqM); Alcohol <10 mg/dL; Alkaline Phosphatase 113 U/L (38-126); Anion Gap 9 mmol/L; Blood Urea Nitrogen 14 mg/dL (9-20); Carbon Dioxide 29 mmol/L (22-30); Chloride 88 mmol/L (98-107); Creatine Kinase 573 U/L (55-170); Glucose 222 mg/dL (74-99); Non-African American GFR(CKD) >90 (>60 ml/min/1.73 sqM); Potassium 4.3 mmol/L (3.5-5.1); Salicylate <1.0 mg/dL; Sodium 126 mmol/L (137-145); Total Bilirubin 0.7 mg/dL (0.2-1.3); Total Protein 6.5 g/dL (6.3-8.2)
[2024-10-01 00:07] LABS: Amorphous Sediment,Urine Rare /hpf; Appearance,Urine Clear (Clear); Bacteria,Urine Rare /hpf; Bilirubin,Urine Negative (Negative); Blood,Urine Large (Negative); Color,Urine Yellow; Glucose,Urine (UA) 4+ (Negative); Hyaline Casts,Urine 23 /lpf (0-2); Ketones,Urine 1+ (Negative); Leukocyte Esterase,Urine Negative (Negative); Mucus,Urine Few /hpf; Nitrite,Urine Negative (Negative); Protein,Urine 3+ (Negative); RBC,Urine 7 /hpf (0-5); Urobilinogen,Urine <2.0 mg/dL (<2.0); WBC,Urine 5 /hpf (0-5)
[2024-10-01 00:34] LABS: Amphetamine Screen,Urine Not Detected (NotDetected); Barbiturate Screen,Urine Not Detected (NotDetected); Benzodiazepines Screen,Urine Not Detected (NotDetected); Cocaine Screen,Urine Not Detected (NotDetected); Methadone Screen, Urine Not Detected (NotDetected); Opiate Screen,Urine Not Detected (NotDetected); Oxycodone Screen, Urine Not Detected (NotDetected); Phencyclidine Screen,Urine Not Detected (NotDetected); Tricyclic Antidepressant,Urine Not Detected (NotDetected); Urn Cannabinoid Scrn Not Detected (NotDetected)
--- NOTE | 2024-10-01 00:49 | CT ---
EXAM: CT Head Without Intravenous Contrast CLINICAL HISTORY: ITS.REASON CT Reason: ams TECHNIQUE: Axial computed tomography images of the head/brain without intravenous contrast. CTDI is 20 mGy and DLP is 200 mGy-cm. This CT exam was performed using one or more of the following dose reduction techniques: automated exposure control, adjustment of the mA and/or kV according to patient size, and/or use of iterative reconstruction technique. COMPARISON: No previous studies. FINDINGS: Brain: Best seen on series 2032, there is extensive abnormal hypodensity of the left cerebral hemisphere with effacement of the sulci. Findings are most compatible with large territory CVA of the left cerebral hemisphere most likely of the left middle cerebral artery. No hemorrhage. No significant white matter disease. Midline shift: There is 1.7 cm left to right midline shift. Midline anatomy is unremarkable. Ventricles: Best seen on series 2032 image 33, there is a large intraparenchymal hemorrhage within the region of the left basal ganglia measuring approximately 5.5 x 6.4 cm in extent and extending to the left lateral ventricle. Hemorrhage is noted within the left lateral ventricle extending to the left third ventricle. Minimal acute hemorrhage is also noted extending to the right lateral ventricle. There is extensive mass- effect upon the left lateral ventricle. Bones/joints: Calvarium is unremarkable. No acute fracture. Soft tissues: Unremarkable. Vasculature: Atherosclerotic disease. Sinuses: Mild to moderate chronic ethmoid sinusitis. Mastoid air cells: Mastoid air cells are well pneumatized. Other findings: Surgical consultation is highly advised. IMPRESSION: 1. Extensive large intracranial hemorrhage noted within the region of the left basal ganglia with marked mass-effect upon the left lateral ventricle with extensive left to right midline shift. 2. Acute hemorrhage is noted within the left lateral ventricle, the right lateral ventricle, and the third ventricle. 3. Findings most compatible with large territory CVA of the left cerebral hemisphere most likely the distribution of the left middle cerebral artery. 4. Surgical consultation is highly advised. EXAM: CT Cervical Spine Without Intravenous Contrast CLINICAL HISTORY: ITS.REASON CT Reason: ams TECHNIQUE: Axial computed tomography images of the cervical spine without intravenous contrast. CTDI is 20 mGy and DLP is 200 mGy-cm. This CT exam was performed using one or more of the following dose reduction techniques: automated exposure control, adjustment of the mA and/or kV according to patient size, and/or use of iterative reconstruction technique. COMPARISON: No previous studies. FINDINGS: Vertebrae: There is straightening of the curvature of the cervical spine compatible muscle spasm. Cervical and visualized thoracic vertebral bodies are maintained in height. Spinous processes are unremarkable. There is a normal relationship of C1 and C2. Dextroscoliosis. Transaxial images of the cervical spine reveals moderate posterior facet hypertrophy and disc osteophyte complexes. No acute fracture. Discs/spinal canal/neural foramina: Moderate to severe degenerative disc disease of the cervical spine. No spinal canal stenosis. Soft tissues: Unremarkable. Tubes, lines and devices: Endotracheal NG tube is noted in place of the thoracic inlet. IMPRESSION: Advanced degenerative disc disease. <MYCVCSECTION> Communications: 10/01/24 00:53 Call Doctor Regarding Intracranial Hemorrhage, called Dr. Pugh on 10/01 00:53 (-05:00)
--- NOTE | 2024-10-01 01:15 | XR ---
EXAM: XR Chest, 1 View CLINICAL HISTORY: ITS.REASON XR Reason: altered mental status TECHNIQUE: Frontal view of the chest. COMPARISON: No previous studies. FINDINGS: Lungs: Unremarkable. No consolidation. Pleural space: Abnormal appearance of the pulmonary parenchyma most suggestive of diffuse calcified pleural plaques. Cardiomegaly. No pneumothorax. Heart: See above. Mediastinum: Unremarkable. Normal mediastinal contour. Bones/joints: Unremarkable. No acute fracture. Tubes, lines and devices: NG tube should be advanced or withdrawn. NG tube is noted in place with its tip below the diaphragm but the side-port just above the diaphragm. IMPRESSION: 1. NG tube should be advanced or withdrawn. 2. Cardiomegaly. <MYCVCSECTION> Communications: 10/01/24 01:22 Call Doctor Regarding Above results, called Dr. Pugh on 10/01 01:21 (-05:00)
--- NOTE | 2024-10-01 01:16 | XR ---
EXAM: XR Pelvis, 1 or 2 Views CLINICAL HISTORY: ITS.REASON XR Reason: fall TECHNIQUE: Frontal view of the pelvis. COMPARISON: No previous studies. FINDINGS: Bones/joints: Subtle subcapital transcervical fractures of the right femur cannot be excluded. Markedly limited evaluation of the right hip joint due to patient positioning. Mild osteoarthritic changes bilaterally. The left hip joint and the proximal left femur are unremarkable. Bony pelvis is unremarkable. No dislocation. Soft tissues: Unremarkable. Vasculature: Atherosclerotic disease. IMPRESSION: CT imaging of the bony pelvis is advised for further assessment of the right hip joint due to the limitations of the current study as discussed above. Subtle acute fracture about the proximal right femur cannot be excluded and further imaging is warranted.
[2024-10-01] MEDS: SODIUM CHLORIDE 0.9% 500 ML BAG IV STA (01:37)
--- NOTE | 2024-10-01 01:39 | CT ---
EXAM: CT Angiography Head With Intravenous Contrast CLINICAL HISTORY: ITS.REASON CT Reason: ams TECHNIQUE: Axial computed tomographic angiography images of the head with intravenous contrast. CTDI is 10.3 mGy and DLP is 515.5 mGy-cm. This CT exam was performed using one or more of the following dose reduction techniques: automated exposure control, adjustment of the mA and/or kV according to patient size, and/or use of iterative reconstruction technique. MIP reconstructed images were created and reviewed. COMPARISON: CT imaging of the head of 09/30/2024. FINDINGS: Right internal carotid artery: Atherosclerotic disease of the 2 cranial segments of the internal carotid arteries. Intracranial segment is patent with no significant stenosis. No aneurysm. Right anterior cerebral artery: Unremarkable. No occlusion or significant stenosis. No aneurysm. Right middle cerebral artery: Right are middle cerebral arteries are unremarkable. No occlusion or significant stenosis. No aneurysm. Right posterior cerebral artery: Anterior and posterior cerebral arteries are unremarkable. No occlusion or significant stenosis. No aneurysm. Right vertebral artery: Unremarkable as visualized. Left internal carotid artery: See above. Left anterior cerebral artery: Unremarkable. No occlusion or significant stenosis. No aneurysm. Left middle cerebral artery: There is a subtle cutoff of the proximal right left middle cerebral artery most compatible with acute CVA of the left middle cerebral artery. Left posterior cerebral artery: See above. Left vertebral artery: Unremarkable as visualized. Basilar artery: Good flow within the basilar artery. No aneurysm. Brain: Extensive hemorrhage is noted within the region of the basal ganglia with extensive left to right midline shift. Evidence of large territory CVA of the left cerebral hemisphere at at the distribution of the left middle cerebral artery. Other findings: The region of the [place] is unremarkable. IMPRESSION: 1. Sudden cutoff of the left middle cerebral artery most compatible with acute occlusion/CVA the distribution of the left middle cerebral artery surgical consultation is highly advised. 2. Large territory are hemorrhage within the region of the left basal ganglia with extensive left to right midline shift. 3. Findings compatible with large territory left cerebral hemispheric CVA in the distribution of the left middle cerebral artery. EXAM: CT Angiography Neck With Intravenous Contrast CLINICAL HISTORY: ITS.REASON CT Reason: ams TECHNIQUE: Routine carotid CT angiography protocol was performed with intravenous contrast. NASCET criteria using the distal ICAs for comparison were used for evaluation of stenoses. CTDI is 10.3 mGy and DLP is 515.5 mGy-cm. This CT exam was performed using one or more of the following dose reduction techniques: automated exposure control, adjustment of the mA and/or kV according to patient size, and/or use of iterative reconstruction technique. MIP reconstructed images were created and reviewed. COMPARISON: CT imaging of the head of 09/30/2024. FINDINGS: VASCULATURE: Right common carotid artery: Good flow within the common carotid arteries. Atherosclerotic disease of the mid to distal common carotid arteries. Right internal carotid artery: Extensive atherosclerotic disease of the carotid bifurcations extending to the proximal internal carotid arteries. Good flow within the internal carotid arteries bilaterally. Right external carotid artery: Unremarkable. No occlusion. Right vertebral artery: Atherosclerotic disease of the proximal vertebral arteries. Good flow within the vertebral arteries are bilaterally extending to the basilar artery. Left common carotid artery: See above. Left internal carotid artery: See above. Left external carotid artery: Unremarkable. No occlusion. Left vertebral artery: Dominant left vertebral artery. Aorta: Atherosclerotic disease of the thoracic aorta. NECK: Bones/joints: Unremarkable. No acute fracture. Soft tissues: Unremarkable. Lung apices: Extensive pleural calcifications are evident near the upper lobes. Tubes, lines and devices: Endotracheal NG tube is noted in place. CAROTID STENOSIS REFERENCE USING NASCET CRITERIA: % ICA stenosis = (1 - narrowest ICA diameter/diameter of distal cervical ICA) x 100. Mild - <50% stenosis. Moderate - 50-69% stenosis. Severe - 70-94% stenosis. Near occlusion - 95-99% stenosis. Occluded - 100% stenosis. IMPRESSION: 1. Extensive atherosclerotic disease most notably at the carotid bifurcations extending to the proximal internal carotid arteries. Duplex Doppler ultrasonography is advised to follow-up for assessment peak systolic velocities. 2. Otherwise, good flow within the great vessels the neck. <MYCVCSECTION> Communications: 10/01/24 01:47 Call Doctor Regarding Above results, called Dr. Bolton on 10/01 01:47 (-05:00)
[2024-10-01 01:52] VITALS: BP 96/61; PULSE 64; RESP 22
[2024-10-01] MEDS: CLEVIDIPINE BUTYRATE 25 MG in EMPTY BAG 1 BAG IV SCH (01:55)
[2024-10-01] MEDS: MIDAZOLAM 1 MG/ML 5 ML VIAL IVP STA (01:56)
== END 2024-10-01 02:05 | disposition other institution (70) ==
LOC: EC 22:47
DX: R41.82 Altered mental status, unspecified (principal); I62.9 Nontraumatic intracranial hemorrhage, unspecified; J96.00 Acute respiratory failure, unspecified whether with hypoxia or hypercapnia; Z88.0 Allergy status to penicillin
CPT/HCPCS: 36415; 36600; 94002; 93005; 80053; 82140; 82550; 82805; 82009; 84484; 85025; 85610; 85730; 81001; 80306; 80143; 80179; 72170; 71045; 72125; 70496; 70450; 70498; 99291; 31500; 96365; 96366; 96375 ×2; 96376; G0480; J2310; J2250 ×2; J2704; Q9967; 80320